=== PATIENT | female | born 1965 | race Caucasian/White ===

== ENCOUNTER → 2022-01-26 | Day surgery (SDC) | payer OTHER | END | disposition home or self-care (01) | LOC: FMAMMOTONE 09:29 | PROVIDERS: ATTEND Physician Assistant Surgical | PROC: 0HBU3ZX Excision of Left Breast, Percutaneous Approach, Diagnostic (ICD-10-PCS; principal; 2022-01-26) | DX: N60.12 Diffuse cystic mastopathy of left breast (principal); N60.22 Fibroadenosis of left breast; N60.32 Fibrosclerosis of left breast; N60.82 Other benign mammary dysplasias of left breast; N64.89 Other specified disorders of breast; R92.0 Mammographic microcalcification found on diagnostic imaging of breast | CPT/HCPCS: 19081; 76098-TC-FY; 87899; 88305-TC; A4648 ==

== ENCOUNTER 2022-10-28 08:51 | Emergency (ER) | payer OTHER ==
[2022-10-28 09:13] VITALS: BP 110/76; PULSE 92; RESP 22; TEMP 98.8; BMI 24.0
[2022-10-28] MEDS ORDERED: ACETAMINOPHEN 1000 MG/100 ML BAG IVPB ONE (09:32)
[2022-10-28] MEDS ORDERED: SODIUM CHLORIDE 1,000 ML IV STA (09:32)
[2022-10-28] MEDS ORDERED: ACETAMINOPHEN INJECTION 100 ML IVPB ONE (11:09)
[2022-10-28 11:51] LABS: BASO % 0.6 % (0-2.0); EOS % 0.1 % (0-4.5); HEMATOCRIT 47.5 % (32.4-45.2); HEMOGLOBIN 16.1 GM/dL (10.7-15.3); LYMPH % 29.8 % (8-40); MCH 29.1 pg (25.7-33.7); MCHC 33.9 g/dl (32.0-36.0); MEAN PLT VOLUME 9.9 fl (7.5-11.1); MONO % 14.3 % (3.8-10.2); NEUT % 55.2 % (42.8-82.8); PLATELET COUNT 187 10^3/uL (134-434); RBC 5.53 M/mm3 (3.60-5.2); RDW 13.6 % (11.6-15.6); WHITE BLOOD COUNT 5.1 K/mm3 (4.0-10.0)
[2022-10-28 11:52] LABS: PH,URINE 5.5 (5.0-8.0); URINE APPEARANCE CLOUDY; URINE BILIRUBIN NEGATIVE (NEGATIVE); URINE COLOR YELLOW; URINE GLUCOSE (UA) NEGATIVE (NEGATIVE); URINE KETONE 1+ (NEGATIVE); URINE LEUK ESTERASE 2+ (NEGATIVE); URINE NITRITE NEGATIVE (NEGATIVE); URINE PROTEIN TRACE (NEGATIVE)
[2022-10-28 12:05] LABS: CALCIUM 8.7 mg/dL (8.5-10.1)
[2022-10-28 12:06] LABS: ALBUMIN 3.4 g/dl (3.4-5.0); BLOOD UREA NITROGEN 16.2 mg/dL (7-18)
[2022-10-28 12:09] LABS: CREATININE 0.8 mg/dL (0.55-1.3)
[2022-10-28 12:11] LABS: BILIRUBIN,TOTAL 0.5 mg/dL (0.2-1); TOT PROT 7.5 g/dl (6.4-8.2)
[2022-10-28 12:24] LABS: EPI CELLS MODERATE /uL (0-25.1); URINE BACTERIA MODERATE /uL (0-1359); URINE WBC MODERATE /uL (0-25.8)
== END 2022-10-28 13:26 | disposition home or self-care (01) ==
LOC: JER 08:51
PROC: 3E0333Z Introduction of Anti-inflammatory into Peripheral Vein, Percutaneous Approach (ICD-10-PCS; principal; 2022-10-28)
PROC: 3E0337Z Introduction of Electrolytic and Water Balance Substance into Peripheral Vein, Percutaneous Approach (ICD-10-PCS; 2022-10-28)
DX: N10 Acute pyelonephritis (principal); U07.1 COVID-19
CPT/HCPCS: 0241U-QW; 36415; 80053; 81003; 85025; 87086; 87186; 99284-25

== ENCOUNTER 2024-01-16 12:08 | Emergency (ER) | payer OTHER ==
[2024-01-16 12:19] VITALS: BP 103/64; PULSE 80; RESP 18; TEMP 98.2; BMI 22.7
[2024-01-16 14:12] LABS: EPI CELLS 10 /uL (0-25.1); HYALINE CASTS 0 /uL (0-3.1); PH,URINE 8.5 (5.0-8.0); URINE APPEARANCE CLEAR; URINE BACTERIA 187 /uL (0-1359); URINE BILIRUBIN NEGATIVE (NEGATIVE); URINE COLOR YELLOW; URINE GLUCOSE (UA) NEGATIVE (NEGATIVE); URINE KETONE NEGATIVE (NEGATIVE); URINE LEUK ESTERASE 1+ (NEGATIVE); URINE NITRITE NEGATIVE (NEGATIVE); URINE PROTEIN NEGATIVE (NEGATIVE); URINE RBC 9 /uL (0-23.9); URINE UROBILINOGEN 0.2 mg/dL (0.2-1.0); URINE WBC 17 /uL (0-25.8)
[2024-01-16 14:51] LABS: BASO % 1.1 % (0-2.0); EOS % 0.8 % (0-4.5); HEMATOCRIT 43.7 % (32.4-45.2); LYMPH % 37.4 % (8-40); MCH 29.8 pg (25.7-33.7); MCHC 34.3 g/dl (32.0-36.0); MEAN CELL VOLUME 86.8 fl (80-96); MEAN PLT VOLUME 9.5 fl (7.5-11.1); MONO % 7.6 % (3.8-10.2); NEUT % 53.1 % (42.8-82.8); PLATELET COUNT 251 10^3/uL (134-434); RBC 5.03 M/mm3 (3.60-5.2); RDW 13.8 % (11.6-15.6); WHITE BLOOD COUNT 6.7 K/mm3 (4.0-10.0)
[2024-01-16] MEDS ORDERED: ACETAMINOPHEN INJECTION 100 ML IVPB ONE (15:04)
[2024-01-16 15:09] LABS: POTASSIUM 5.5 mmol/L (3.5-5.1)
[2024-01-16 15:12] LABS: ALBUMIN 3.5 g/dl (3.4-5.0); BLOOD UREA NITROGEN 7.3 mg/dL (7-18); CALCIUM 9.4 mg/dL (8.5-10.1)
[2024-01-16] MEDS: ACETAMINOPHEN 1000 MG/100 ML BAG IVPB ONE (15:12)
[2024-01-16] MEDS: SODIUM CHLORIDE 1,000 ML IV STA (15:12)
[2024-01-16 15:16] LABS: CREATININE 0.6 mg/dL (0.55-1.3)
[2024-01-16 15:17] LABS: BILIRUBIN,TOTAL 0.4 mg/dL (0.2-1); TOT PROT 7.6 g/dl (6.4-8.2)
[2024-01-16] MEDS ORDERED: CEPHALEXIN MONOHYDRATE 500 MG CAPSULE (UD) PO ONE (16:42)
[2024-01-16] MEDS ORDERED: CEPHALEXIN MONOHYDRATE 500 MG CAPSULE (UD) ONE (16:50)
== END 2024-01-16 17:07 | disposition home or self-care (01) ==
LOC: JER 12:08
PROC: 3E033NZ Introduction of Analgesics, Hypnotics, Sedatives into Peripheral Vein, Percutaneous Approach (ICD-10-PCS; principal; 2024-01-16)
PROC: 3E0337Z Introduction of Electrolytic and Water Balance Substance into Peripheral Vein, Percutaneous Approach (ICD-10-PCS; 2024-01-16)
DX: N30.00 Acute cystitis without hematuria (principal); M54.9 Dorsalgia, unspecified; R35.0 Frequency of micturition; R30.0 Dysuria
CPT/HCPCS: 36415; 76775-TC; 80053; 81003; 84132; 85025; 87086; 87186; 96361; 96374; 99284-25; J0131

== ENCOUNTER 2024-05-17 17:28 | Emergency (ER) | payer OTHER ==
[2024-05-17 17:37] VITALS: BMI 24.1
[2024-05-17] MEDS ORDERED: MAG HYDROX/AL HYDROX/SIMETH 30 ML UNIT-DOSE CUP ONE (18:50)
[2024-05-17] MEDS ORDERED: ACETAMINOPHEN INJECTION 100 ML IVPB ONE (18:50)
[2024-05-17] MEDS ORDERED: FAMOTIDINE 20 MG TABLET ONE (18:50)
[2024-05-17 18:53] LABS: BASO % 1.2 % (0-2.0); HEMATOCRIT 40.2 % (32.4-45.2); HEMOGLOBIN 13.9 GM/dL (10.7-15.3); MCH 29.8 pg (25.7-33.7); MCHC 34.6 g/dl (32.0-36.0); MEAN CELL VOLUME 86.1 fl (80-96); MEAN PLT VOLUME 9.1 fl (7.5-11.1); MONO % 9.5 % (3.8-10.2); NEUT % 58.3 % (42.8-82.8); PLATELET COUNT 248 10^3/uL (134-434); RBC 4.67 M/mm3 (3.60-5.2); RDW 14.3 % (11.6-15.6); WHITE BLOOD COUNT 8.3 K/mm3 (4.0-10.0)
[2024-05-17] MEDS: ACETAMINOPHEN 1000 MG/100 ML BAG IVPB ONE (18:54)
[2024-05-17] MEDS: FAMOTIDINE 10 MG TABLET PO ONE (18:55)
[2024-05-17] MEDS: MAG HYDROX/AL HYDROX/SIMETH -MYLANTA- ORAL SUSPENSION PO ONE (18:55)
[2024-05-17 18:56] LABS: EPI CELLS 14 /uL (0-25.1); HYALINE CASTS 0 /uL (0-3.1); PH,URINE 6.5 (5.0-8.0); URINE APPEARANCE CLEAR; URINE BACTERIA 425 /uL (0-1359); URINE BILIRUBIN NEGATIVE (NEGATIVE); URINE COLOR YELLOW; URINE GLUCOSE (UA) NEGATIVE (NEGATIVE); URINE KETONE NEGATIVE (NEGATIVE); URINE LEUK ESTERASE 2+ (NEGATIVE); URINE NITRITE NEGATIVE (NEGATIVE); URINE PROTEIN NEGATIVE (NEGATIVE); URINE RBC 13 /uL (0-23.9); URINE UROBILINOGEN 0.2 mg/dL (0.2-1.0); URINE WBC 92 /uL (0-25.8)
[2024-05-17 18:59] LABS: INR 1.02 (0.83-1.09); PROTHROMBIN TIME (PATIENT) 11.7 SEC (9.7-13.0)
[2024-05-17 19:39] LABS: POTASSIUM 5.1 mmol/L (3.5-5.1)
[2024-05-17 19:43] LABS: ALBUMIN 3.9 g/dl (3.4-5.0); CALCIUM 9.6 mg/dL (8.5-10.1)
[2024-05-17 19:46] LABS: CREATININE 0.7 mg/dL (0.55-1.3)
[2024-05-17 19:48] LABS: BILIRUBIN,TOTAL 0.4 mg/dL (0.2-1); TOT PROT 7.8 g/dl (6.4-8.2)
[2024-05-17] MEDS ORDERED: METHOCARBAMOL 500 MG TABLET ONE (20:00)
[2024-05-17] MEDS ORDERED: KETOROLAC TROMETHAMINE 15 MG/ML VIAL ONE (20:00)
[2024-05-17] MEDS: METHOCARBAMOL 500 MG TABLET PO ONE (20:15)
[2024-05-17] MEDS: KETOROLAC TROMETHAMINE 15 MG/ML VIAL IVPUSH ONE (20:15)
[2024-05-17 22:25] VITALS: BP 128/76; PULSE 76; RESP 18; TEMP 98
== END 2024-05-17 22:24 | disposition home or self-care (01) ==
LOC: JER 17:28
PROC: 3E033NZ Introduction of Analgesics, Hypnotics, Sedatives into Peripheral Vein, Percutaneous Approach (ICD-10-PCS; principal; 2024-05-17)
PROC: 3E0333Z Introduction of Anti-inflammatory into Peripheral Vein, Percutaneous Approach (ICD-10-PCS; 2024-05-17)
DX: M25.511 Pain in right shoulder (principal); R10.12 Left upper quadrant pain
CPT/HCPCS: 36415; 71046-TC-FY; 80053; 81003; 82550; 83690; 84484; 85025; 85610; 86850; 86900; 86901; 87086; 87186; 93005; 93010; 99285-25; J0131

== ENCOUNTER 2024-08-05 14:41 | Emergency (ER) | payer OTHER ==
[2024-08-05 14:51] VITALS: BMI 25.9
[2024-08-05] MEDS ORDERED: ONDANSETRON 4 MG/2 ML VIAL ONE (15:31)
[2024-08-05] MEDS ORDERED: KETOROLAC TROMETHAMINE 30 MG/1 ML VIAL ONE (15:31)
[2024-08-05] MEDS: SODIUM CHLORIDE 0.9% 1000 ML INFUS.BAG IV ONE (15:41)
[2024-08-05] MEDS: KETOROLAC TROMETHAMINE 30 MG/1 ML VIAL IVPUSH ONE (15:41)
[2024-08-05 15:42] LABS: EOS % 0.4 % (0-4.5); HEMATOCRIT 40.8 % (32.4-45.2); HEMOGLOBIN 13.6 GM/dL (10.7-15.3); LYMPH % 27.1 % (8-40); MCH 29.3 pg (25.7-33.7); MCHC 33.4 g/dl (32.0-36.0); MEAN CELL VOLUME 87.7 fl (80-96); MEAN PLT VOLUME 9.7 fl (7.5-11.1); MONO % 12.1 % (3.8-10.2); NEUT % 59.4 % (42.8-82.8); PLATELET COUNT 214 10^3/uL (134-434); RBC 4.65 M/mm3 (3.60-5.2); RDW 13.4 % (11.6-15.6); WHITE BLOOD COUNT 6.3 K/mm3 (4.0-10.0)
[2024-08-05] MEDS: ONDANSETRON 4 MG/2 ML VIAL IVPUSH ONE (15:42)
[2024-08-05 16:06] LABS: POTASSIUM 4.3 mmol/L (3.5-5.1)
[2024-08-05 16:07] LABS: CALCIUM 9.5 mg/dL (8.5-10.1)
[2024-08-05 16:08] LABS: BLOOD UREA NITROGEN 12.5 mg/dL (7-18)
[2024-08-05 16:11] LABS: CREATININE 0.7 mg/dL (0.55-1.3)
[2024-08-05] MEDS ORDERED: ACETAMINOPHEN INJECTION 100 ML ONE (16:38)
[2024-08-05 16:53] LABS: HIV INTERPRETATION NEGATIVE (NEGATIVE)
[2024-08-05] MEDS: ACETAMINOPHEN 1000 MG/100 ML BAG IVPB ONE (17:01)
[2024-08-05 17:10] LABS: EPI CELLS 17 /uL (0-25.1); HYALINE CASTS 2 /uL (0-3.1); PH,URINE 5.5 (5.0-8.0); URINE APPEARANCE CLEAR; URINE BACTERIA 78 /uL (0-1359); URINE BILIRUBIN NEGATIVE (NEGATIVE); URINE COLOR YELLOW; URINE GLUCOSE (UA) NEGATIVE (NEGATIVE); URINE KETONE 1+ (NEGATIVE); URINE LEUK ESTERASE 2+ (NEGATIVE); URINE NITRITE NEGATIVE (NEGATIVE); URINE PROTEIN TRACE (NEGATIVE); URINE RBC 33 /uL (0-23.9); URINE UROBILINOGEN 0.2 mg/dL (0.2-1.0); URINE WBC 112 /uL (0-25.8)
[2024-08-05] MEDS ORDERED: TAMSULOSIN HCL 0.4 MG CAP ONE (18:46)
[2024-08-05] MEDS: TAMSULOSIN HCL 0.4 MG CAP PO ONE (18:48)
[2024-08-05 18:51] VITALS: BP 106/56; PULSE 65; RESP 16; TEMP 98.5
== END 2024-08-05 19:21 | disposition home or self-care (01) ==
LOC: JER 14:41
PROC: 3E033NZ Introduction of Analgesics, Hypnotics, Sedatives into Peripheral Vein, Percutaneous Approach (ICD-10-PCS; principal; 2024-08-05)
PROC: 3E0333Z Introduction of Anti-inflammatory into Peripheral Vein, Percutaneous Approach (ICD-10-PCS; 2024-08-05)
PROC: 3E033GC Introduction of Other Therapeutic Substance into Peripheral Vein, Percutaneous Approach (ICD-10-PCS; 2024-08-05)
DX: N20.0 Calculus of kidney (principal); R10.9 Unspecified abdominal pain; R30.0 Dysuria
CPT/HCPCS: 36415; 74176-TC; 80048; 81003; 85025; 86803; 87086; 87186; 87389; 99284-25; J0131